=== PATIENT | female | born 1995 | race Caucasian/White ===

== ENCOUNTER 2018-11-22 04:39 | Emergency (ER) | payer OTHER ==
[2018-11-22 04:47] VITALS: TEMP 98.3
--- NOTE | 2018-11-22 05:08 | ED ---
URI HPI - General Chief Complaint: Upper Respiratory Infection Stated Complaint: chest congestion Time Seen by Provider: 11/22/18 04:50 Source: patient Mode of arrival: ambulatory Limitations: no limitations - History of Present Illness Initial Comments: Lauryn is a previously healthy fully vaccinated 22-year-old female who did not receive her flu vaccine this year. She presents the emergency department for evaluation of fever, chills, cough and body aches. She reports that she's been dealing with nasal congestion and nonproductive cough for nearly a month but over the past 3-4 days his head progressively worsening cough body aches and fever. She became concerned she may have the flu or pneumonia. She has not taken anything [id number] for this. She denies any known sick contacts but does work with the public. Patient denies any chest pain, palpitations or shortness of breath. She is a cigarette smoker but reports she has not had any cigarettes since beginning of the worsening of the symptoms 3 days ago. - Related Data Allergies Allergy/AdvReac Type Severity Reaction Status Date / Time buspirone [From BuSpar] Allergy Swelling Verified 11/22/18 04:47 Review of Systems ROS Statement: Those systems with pertinent positive or pertinent negative responses have been documented in the HPI. ROS Other: All systems not noted in ROS Statement are negative. Past Medical History Past Medical History: Liver Disease, Thyroid Disorder History of Any Multi-Drug Resistant Organisms: None Reported Past Surgical History: Tonsillectomy Past Psychological History: No Psychological Hx Reported Smoking Status: Current every day smoker Past Alcohol Use History: None Reported Past Drug Use History: None Reported General Exam - General Exam Comments Initial Comments: Physical Exam GENERAL: Patient is well-developed and well-nourished. Appears nontoxic but flulike appears as though she is not feeling well HENT: Normocephalic, Atraumatic. TMs normal bilaterally Normal oropharynx EYES: PERRL, EOMI PULMONARY: Unlabored respirations. No audible rales rhonchi or wheezing was noted. CARDIOVASCULAR: There is a regular rate and rhythm without any murmurs gallops or rubs. ABDOMEN: Soft and nontender with normal bowel sounds. SKIN: Skin is warm and clammy : Deferred NEUROLOGIC: Patient is alert and oriented x3. Moving all extremities spontaneously MUSCULOSKELETAL: Normal extremities with adequate strength and full range of motion. No lower extremity swelling or edema. No calf tenderness. PSYCHIATRIC: Normal psychiatric evaluation. Limitations: no limitations Limitations: no limitations Course Vital Signs 11/22/18 11/22/18 04:43 06:42 Temperature 98.3 F Pulse Rate 79 87 Respiratory 18 16 Rate Blood Pressure 138/64 152/96 O2 Sat by Pulse 98 97 Oximetry Medical Decision Making - Medical Decision Making The patient was seen and evaluated history and physical exam are concerning for flu versus pneumonia Flu swab and x-ray were ordered After the patient IV fluid rehydration however she likely declined and she is tolerating by mouth intake just fine Chest x-ray with no signs of pneumonia Patient is influenza positive however symptoms at the present for greater than 48 hours she is not a candidate for Tamiflu. Supportive care was discussed for pertinent parameters discussed all questions pertaining care were answered patient was given a work note to have the next 72 hours off work due to being contagious. Patient was discharged home in stable condition - Lab Data Lab Results 11/22/18 Range/Units 05:25 Influenza Type A RNA Detected H (Not Detectd) Influenza Type B (PCR) Not Detected (Not Detectd) Disposition Clinical Impression: Influenza Disposition: HOME SELF-CARE Instructions (If sedation given, give patient instructions): Upper Respiratory Infection (ED) Additional Instructions: Alternate Tylenol and Motrin every 3 hours, you can take and milligrams of Motrin for 650 mg of Tylenol that he take one of these every 3 hours she'll be taking each one every 6 which is safe dose. With influenza you can expect to have a fever for the first 72 hours, fever should respond to these medications but may not resolve completely. He need to make sure they stay hydrated drinking pretty of water or Gatorade or Pedialyte. Is patient prescribed a controlled substance at d/c from ED?: No Referrals: Nonstaff,Physician [Primary Care Provider] - 1-2 days
--- NOTE | 2018-11-22 05:44 | XR ---
EXAM: XR Chest, 2 Views CLINICAL HISTORY: ITS.REASON XR Reason: cough TECHNIQUE: Frontal and lateral views of the chest. COMPARISON: No relevant prior studies available. FINDINGS: Lungs: No consolidation or mass. Pleural space: No effusion. Heart: No cardiomegaly. Mediastinum: Unremarkable. Bones/joints: No acute findings. IMPRESSION: No acute cardiopulmonary process.
[2018-11-22 06:43] VITALS: BP 152/96; PULSE 87; RESP 16
== END 2018-11-22 06:42 | disposition home or self-care (01) ==
LOC: EC 04:39
DX: J10.1 Influenza due to other identified influenza virus with other respiratory manifestations (principal); F17.210 Nicotine dependence, cigarettes, uncomplicated; Z53.29 Procedure and treatment not carried out because of patient's decision for other reasons; Z88.8 Allergy status to other drugs, medicaments and biological substances
CPT/HCPCS: 71046; 87502; 99283